=== PATIENT | female | born 1940 | race African-American/Black ===

== ENCOUNTER 2017-04-19 05:35 | Day surgery (SDC) | payer MEDICARE, MEDICAID ==
--- NOTE | 2017-04-18 14:30 | Pre-Procedure Note/Attestation ---
Pre-Procedure Note/Attestation Complete Prior to Procedure Planned Procedure: left Procedure Narrative: phaco with IOL, Indications for Procedure Pre-Operative Diagnosis: cataract Attestation I attest that I discussed the nature of the procedure; its benefits; risks and complications; and alternatives (and the risks and benefits of such alternatives ), prior to the procedure, with the patient (or the patient's legal marketing sales representative). I attest that, if there was a reasonable possibility of needing a blood transfusion, the patient (or the patient's legal marketing sales representative) was given the [facility] standardized written summary, pursuant to the Cassius [place] Blood Safety Act ([place] Health and Safety Code # 1645, as amended). I attest that I re-evaluated the patient just prior to the surgery and that there has been no change in the patient's H&P, except as documented below: YAAKA DEGROOT Apr 18, 2017 14:30
--- NOTE | 2017-04-18 14:32 | Opthalmology H&P ---
Ophthalmology H&P H&P Chief Complaint: decreased vision in left eye HPI Vision Affects Ability to: read, focus/use eyes together, manage personal affairs HPI Narrative blurry vision Exam Visual Acuity: OD: 20/40 OS: 20/50 Tension: OD: 16 OS: 18 Eye Exam: normal OU: external exam, palpebral fissure-width, marginal reflex distance, levator function, corneas, anterior chambers, findings: lens - OD: IOL OS: ns, fundus exam - PDR OU Assessment/Plan Diagnosis: (1) Nuclear senile cataract of left eye Treatment Plan: cataract extraction w/ lens implant Goals of Treatment: improvement of vision, enhance quality of life Attestation Attestation The risks and benefits of the surgery as well as alternative procedures were explained to the patient in detail. AYAKA DEGROOT Apr 18, 2017 14:32
[2017-04-19] VITALS (10 sets, daily range): BP systolic 115–156; BP diastolic 58–74
[~2017-04-19] VITALS: Ht 162.6 cm; Wt 77.1 kg
[2017-04-19] MEDS: Tropicamide 1% Opth 15ml Soln LEFT EYE SCH ×3 (06:10→06:32)
[2017-04-19] MEDS: Tobramycin Op Soln 0.3% 5ml LEFT EYE SCH ×3 (06:10→06:32)
[2017-04-19] MEDS: Phenylephrine 10% Opth Soln 5ml LEFT EYE SCH ×3 (06:10→06:32)
[2017-04-19] MEDS: Cyclopentolate 1% Opth Sol 2ml LEFT EYE SCH ×3 (06:10→06:32)
[2017-04-19] MEDS: Ketorolac Tromethamine Opth 5ml Soln LEFT EYE SCH ×3 (06:11→06:32)
[2017-04-19] MEDS ORDERED: AMITRIPTYLINE25 MG ORAL (06:46)
[2017-04-19] MEDS ORDERED: CILOSTAZOL100 MG PO (06:46)
[2017-04-19] MEDS ORDERED: METOPROLOL SUC100 MG ORAL (06:46)
[2017-04-19] MEDS ORDERED: HYDRALAZINE HCL25 M2 PO (06:46)
[2017-04-19] MEDS ORDERED: BENAZEPRIL HCL40 MG ORAL (06:46)
[2017-04-19] MEDS ORDERED: ISOSORBIDE MONO60 M1 PO (06:46)
[2017-04-19] MEDS ORDERED: PRAVASTATIN SOD40 M1 ORAL (06:46)
[2017-04-19] MEDS ORDERED: Pred Forte 1% Opth Susp 1ml ONE (07:00)
[2017-04-19] MEDS ORDERED: Propofol 200mg/20ml IV ONE (07:00)
[2017-04-19] MEDS ORDERED: Sterile Water 10ml Vial ONE (07:00)
[2017-04-19] MEDS ORDERED: BSS 500ml btl ONE (07:00)
[2017-04-19] MEDS ORDERED: Sterile Water Irrig 1000ml IRRIG ONE (07:00)
[2017-04-19] MEDS ORDERED: Akten 3.5% 1ml Btl LEFT EYE ONE (07:00)
[2017-04-19] MEDS ORDERED: NS Irrig 1000ml ONE (07:00)
[2017-04-19] MEDS ORDERED: EPINEPHrine 1mg/1ml Amp ONE ×2 (07:00→10:42)
[2017-04-19] MEDS ORDERED: LR 1000ml ONE (07:00)
[2017-04-19] MEDS ORDERED: Midazolam 2mg/2ml Inj ONE (07:00)
[2017-04-19] MEDS ORDERED: Proparacaine 0.5% Opth Soln 15ml LEFT EYE ONE (07:00)
[2017-04-19] MEDS ORDERED: Pilocarpine 2% Opth 15ml Soln ONE (07:00)
[2017-04-19] MEDS ORDERED: Dexamethasone 4mg/ml vial ONE (07:00)
[2017-04-19] MEDS ORDERED: fentaNYL 100 mcg/2 mL IV ONE (07:00)
[2017-04-19] MEDS ORDERED: Maxitrol Opth Oint 3.5gm ONE (07:00)
[2017-04-19] MEDS ORDERED: Tetracaine 0.5% Opth 4ml Soln LEFT EYE ONE (07:00)
[2017-04-19 07:16] LABS: ANION GAP 3 mmol/L (5-15); BLOOD UREA NITROGEN 15 mg/dL (7-18); CALCIUM 9.3 MG/DL (8.5-10.1); CARBON DIOXIDE 32 MMOL/L (21-32); CHLORIDE 104 MMOL/L (98-107); POTASSIUM 4.4 MMOL/L (3.5-5.1); SODIUM 139 MMOL/L (136-145)
--- NOTE | 2017-04-19 07:31 | Anethesia Preoperative Eval ---
Anesthesia Pre-op PMH/ROS General Date of Evaluation: Apr 19, 2017 Time of Evaluation: 07:27 Anesthesiologist: Todd ASA Score: ASA 3 Mallampati Score Class I : Soft palate, uvula, fauces, pillars visible Class II: Soft palate, uvula, fauces visible Class III: Soft palate, base of uvula visible Class IV: Only hard plate visible Mallampati Classification: Class III Surgeon: Dagmar Diagnosis: L eye cataract Surgical Procedure: L eye cataract extraction Anesthesia History: none Family History: no anesthesia problems Allergies: Coded Allergies: No Known Allergies (Unverified , 04/19/17) Medications: see eMAR Past Medical History Cardiovascular: Reports: HTN, Denies: CAD, NM, valve dz, arrhythmia, other Pulmonary: Reports: asthma - mild, Denies: COPD, ISSAC, other Gastrointestinal/Genitourinary: Reports: GERD, Denies: CRI, ESRD, other Neurologic/Psychiatric: Reports: depression/anxiety, Denies: dementia, CVA, TIA, other Endocrine: Reports: DM - on insulin poorly controled, Denies: hypothyroidism, steroids, other HEENT: Reports: cataract (L), cataract (R), Denies: glaucoma, [place] (L), [place] (R), other Hematology/Immune: Denies: anemia, DVT, bleeding disorder, other Musculoskeletal/Integumentary: Reports: DJD, Denies: OA, RA, DDD, edema, other Other: other - overweight PMH Narrative: as above PSxH Narrative: R eye cataract Anesthesia Pre-op Phys. Exam Physician Exam Last Vital Signs Date Time Temp Pulse Resp B/P (MAP) Pulse Ox O2 Delivery O2 Flow Rate FiO2 04/19/17 06:21 97.0 75 18 156/74 97 Room Air 97.0 Constitutional: NAD Neurologic: CN 2-12 intact Cardiovascular: RRR, no M/R/G Respiratory: CTA Gastrointestinal: S/NT/ND Airway Exam Mallampati Score: Class III MO: limited Neck: short ROM: limited Teeth: missing Dentures: no upper, no lower Anesthesia Pre-op A/P Labs Chemistry Test 04/19/17 06:39 Sodium Level 139 MMOL/L (136-145) Potassium Level 4.4 MMOL/L (3.5-5.1) Chloride Level 104 MMOL/L (98-107) Carbon Dioxide Level 32 MMOL/L (21-32) Anion Gap 3 mmol/L (5-15) L Blood Urea Nitrogen 15 mg/dL (7-18) Creatinine 1.0 MG/DL (0.55-1.30) Estimat Glomerular Filtration Rate mL/min (>60) Glucose Level 269 MG/DL (74-106) H Calcium Level 9.3 MG/DL (8.5-10.1) Studies Pre-op Studies: EKG - SR Risk Assessment & Plan Assessment: ASA 3 Plan: MAC Status Change Before Surgery: No Pre-Antibiotics Drug: None REZA FLETCHER M.D. Apr 19, 2017 07:31
[2017-04-19] MEDS ORDERED: LR 1000ml 1,000 ML IVLG SCH (07:33)
[2017-04-19] MEDS ORDERED: DiphenhydrAMINE 50mg/ml Inj IVP PRN (07:45)
[2017-04-19] MEDS ORDERED: fentaNYL 100 mcg/2 mL IV PRN (07:45)
[2017-04-19] MEDS ORDERED: Povidone-Iodine 5% opth solution ONE ×2 (07:53→10:43)
--- NOTE | 2017-04-19 08:33 | Immediate Post-Op Evaluation ---
Immediate Post-Op Evalulation Immediate Post-Op Evalulation Procedure: L eye cataract extraction with IOL Date of Evaluation: Apr 19, 2017 Time of Evaluation: 08:32 IV Fluids: 300 Blood Products: none Estimated Blood Loss: none Urinary Output: nonr Blood Pressure Systolic: 149 Blood Pressure Diastolic: 64 Pulse Rate: 71 Respiratory Rate: 20 O2 Sat by Pulse Oximetry: 99 Temperature (Fahrenheit): 97.6 Pain Score (1-10): 1 Nausea: No Vomiting: No Complications none Patient Status: reacts, patent, none Hydration Status: adequate REZA FLETCHER M.D. Apr 19, 2017 08:33
--- NOTE | 2017-04-19 09:45 | Pre-op HX & Phy Repo 2 SIG ---
DATE OF ADMISSION: 04/19/2017 PRESURGICAL INTERNAL MEDICINE HISTORY AND PHYSICAL REASON FOR EVALUATION: I was asked by Dr. Neo Leavitt to see this 76-year-old female, who is going for elective surgery on the left eye. The patient has a cataract left eye. Please see the ophthalmology history and Physical by Dr. Neo Leavitt. The patient was evaluated. Chart was reviewed. PAST MEDICAL HISTORY/REVIEW OF SYSTEMS: Remarkable for insulin-dependent diabetes mellitus, hypertension, history of mild heart attack in 1989, hyperlipidemia, and childhood bronchial asthma. Denies history of stroke or seizures. No Parkinson disease. Denies history of thyroid problem or anemia. No history of GI bleeding, ulcer disease, or hepatitis. No history of renal failure. PAST SURGICAL HISTORY: Appendectomy and right eye cataract surgery. FAMILY HISTORY: Remarkable for both parents, has a diabetes mellitus and heart problem. ALLERGIES: Not known. PRESENT MEDICATIONS: Include Humulin 50 units in the morning and 70 units in the evening. The patient takes hydralazine, isosorbide, benazepril 40 mg daily, 100 mg, pravastatin, amiodarone 25 mg, and metoprolol 100 mg daily. HABITS: The patient smoked for approximately 10 years and stopped in 1989. Denies alcohol. Denies street drugs. PHYSICAL EXAMINATION: GENERAL: Alert, well-developed, well-nourished female in her 70s, in no acute distress. VITAL SIGNS: Blood pressure 156/74, temperature 97, pulse 75, and O2 saturation 97% on room air. SKIN: Dry and clear. No open wound or ulcer. No rashes. No diaphoresis. LYMPH NODES: Not enlarged. HEENT: Head, normocephalic. Ears, clear. Eyes, full description per Dr. Neo Leavitt. Mouth, dry and clear. Wear dentures upper and lower. NECK: Supple. No palpable mass. No lymph node enlargement. Thyroid gland soft, no nodes. Trachea midline. CHEST: No deformity or asymmetry. LUNGS: Clear. No rales or rhonchi. The patient has a chronic cough, dry. HEART: Sinus rhythm. No ectopy. No murmur. No S3 or S4. ABDOMEN: Soft. Obese. No palpable mass. No rebound. EXTREMITIES: No edema. No varicose vein. No calf tenderness. GENITOURINARY TRACT: No CVA tenderness. Denies dysuria. NERVOUS SYSTEM: No tremor. No nystagmus. DIAGNOSTIC DATA: ECG normal sinus rhythm, 73 per minute, and right bundle-branch block. Fast blood sugar 265 mg/dL. The patient did not take any insulin this morning. The patient is NPO since 8 p.m. yesterday. IMPRESSION: 1. Cataract, left eye. 2. Hypertension. 3. Insulin-dependent diabetes mellitus. 4. Hyperlipidemia. 5. Childhood asthma with chronic cough, dry. PLAN: Cataract extraction left eye with intraocular lens implant per Dr. Neo Leavitt. CONCLUSION: The patient is a 76-year-old female. Her vital signs stable with a history of hypertension and insulin-dependent diabetes, not completely controlled. The patient did not eat or drink from last night. The patient's electrocardiogram shows a right bundle-branch block. The patient is asymptomatic. She has a history of myocardial infarction. The patient's condition optimized for surgery. Thank you very much. Marleni Leavitt M.D. DR: VAHE JOB#: [id number] CC:
--- NOTE | 2017-04-19 10:11 | 48 Hour Post Anesthesia Eval ---
Post Anesthesia Evaluation Procedure: L eye cataract extraction with IOL Date of Evaluation: Apr 19, 2017 Time of Evaluation: 10:10 Blood Pressure Systolic: 142 0: 67 Pulse Rate: 74 Respiratory Rate: 20 Temperature (Fahrenheit): 97.6 O2 Sat by Pulse Oximetry: 98 Airway: patent Nausea: No Vomiting: No Pain Intensity: 1 Hydration Status: adequate Cardiopulmonary Status: stable Mental Status/LOC: patient returned to baseline Follow-up Care/Observations: n/a Post-Anesthesia Complications: none Follow-up care needed: ready to discharge REZA FLETCHER M.D. Apr 19, 2017 10:11
[2017-04-19] MEDS ORDERED: Lidocaine 2% MPF 5ml Vial INJ ONE (10:42)
[2017-04-19] MEDS ORDERED: BSS 15ml BTL ONE (10:42)
[2017-04-19] MEDS ORDERED: Sodium Hyaluronate 14 mg/ml 0.85ml ONE (10:43)
--- NOTE | 2017-04-19 11:42 | Brief Operative Note ---
Immediate Post Operative Note Operative Note Chief Complaint: blurry vision Pre-op Diagnosis: cataract, OS Procedure: phaco with IOL, OS Post-op Diagnosis: Pseudophakia Post-op Diagnosis: same as pre-op Findings: consistent w/pre-op dx studies Surgeon: Dagmar Anesthesiologist: Todd Anesthesia: MAC Specimen: none Complications: none Fluids: LR Estimated Blood Loss: none Drains: none Implant(s) used?: Yes AYAKA DEGROOT Apr 19, 2017 11:42
--- NOTE | 2017-04-19 11:42 | Operative Note - PDOC ---
Operative Note Operative Note Date of Operation/Procedure: Apr 19, 2017 Chief Complaint: blurry vision Pre-op Diagnosis: cataract, OS Procedure: phaco with IOL, OS Post-op Diagnosis: Pseudophakia Post-op Diagnosis: same as pre-op Operative Findings: consistent w/pre-op dx studies Surgeon: Dagmar Anesthesiologist: Todd Anesthesia: MAC Specimen: none Complications: none Fluids: LR Estimated Blood Loss: none Drains: none Implant(s) used?: Yes Indications for Procedure cataract Description of Procedure This patient has been complaining visually significant cataract in the affected eye with the best corrected visual acuity under moderate glare conditions worse. The patient complains of difficulties with glare in performing activities of daily living and wants to manage personal affairs with comfort and accuracy and see well enough to move with safety at home and outdoors. The risks, benefits and alternatives of the procedure were discussed with the patient in the office prior to scheduling surgery. All questions from the patient were answered after the surgical procedure was explained in detail. The risks of the procedure as explained to the patient include, but are not limited to, pain, infection, bleeding, loss of vision, retinal detachment, need for further surgery, loss of lens nucleus, double vision, etc. Alternative procedures were discussed which include, to do nothing or seek a second opinion. Informed consent for this procedure was obtained from the patient. The patient was referred to a primary care physician for a cardiopulmonary clearance prior to surgery, after proper evaluation was done patient was properly scheduled for outpatient surgery. The patient was brought to the operating room where the anesthesiologist established I.V. lines and cardiac monitoring leads. Mild intravenous sedation was administered. The patient was then prepared with a 5% solution of povidone -iodine to the conjunctival fornix and lashes, and a 5% solution of povidone- iodine to the lids and periorbital skin. The patient was then draped in the usual sterile fashion. A lid speculum was then placed in the operative eye. A keratome blade was then used to create a biplanar incision into the anterior chamber. Viscoelastics was then instilled into the anterior chamber. A capsulorrhexis was then fashioned with an utrata forceps. BSS and a cannula were then used to hydrodissect and hydro delineate the lens. Paracentesis incision was made at 3 o'clock with sharp blade. The phacoemulsification unit, after being properly adjusted and tested, was then used to emulsify the nucleus. Residual cortical material was aspirated with the irrigation and aspiration unit. Healon was then instilled into the anterior chamber. The corneal wound was then enlarged to the size of the optic with the dajuan keratome blade. The intraocular lens was then inspected for right power and size and thought to be satisfactory. Then the lens was gently placed in the capsular bag. Positioning within the capsular bag was confirmed by direct visualization. Optic centration was accomplished with a Sins[place] hook. Viscoelastics was removed from the anterior chamber using the irrigation and aspiration unit. The corneal wound was then tested for leaks and none were found. The lid speculum were then removed. Sponge and needle counts were correct. An eye patch and shield were placed over the operative eye. The patient was taken to the recovery room in stable condition. There were no complications. The patient tolerated the procedure well. The patient was then transferred to the ambulatory surgery unit in stable and satisfactory condition , was given detailed written instructions and asked to follow up in the office the next day. AYAKA DEGROOT Apr 19, 2017 11:42
--- NOTE | 2017-04-24 20:21 | Cardiology Report ---
APPROVED REPORT EKG Measurement Heart [id number] Normal sinus rhythm Right bundle branch block Abnormal ECG
== END 2017-04-19 10:30 | disposition home or self-care (01) ==
LOC: SUR 05:35
DX: H25.12 Age-related nuclear cataract, left eye (principal); I10 Essential (primary) hypertension; E11.9 Type 2 diabetes mellitus without complications; Z79.4 Long term (current) use of insulin; I25.2 Old myocardial infarction; Z87.891 Personal history of nicotine dependence; E78.5 Hyperlipidemia, unspecified; I45.10 Unspecified right bundle-branch block; K21.9 Gastro-esophageal reflux disease without esophagitis; F32.9 Major depressive disorder, single episode, unspecified; F41.9 Anxiety disorder, unspecified; M19.90 Unspecified osteoarthritis, unspecified site
CPT/HCPCS: 36415; 66984; 80048; 82962; 93005; J0171; J1100; J2250; J2704; J3010; J3370; J7120; V2632; 94003; 94150; A4216